=== PATIENT | male | born 1975 | race African-American/Black ===

== ENCOUNTER 2016-09-05 14:23 | Emergency (ER) | payer OTHER ==
[~2016-09-05] VITALS: Ht 167.6 cm; Wt 92.0 kg
[2016-09-05] MEDS ORDERED: MORPHINE SULFATE 4 MG/ML, 1ML IVPush PRN (15:30)
[2016-09-05] MEDS ORDERED: ONDANSETRON 2MG/ML, 2ML IVPush ONE (15:30)
[2016-09-05] MEDS ORDERED: SODIUM CHLORIDE FLUSH 10ML SYR IVF ONE (15:30)
[2016-09-05] MEDS ORDERED: MORPHINE SULFATE 4 MG/ML, 1ML ONE (15:39)
[2016-09-05] MEDS ORDERED: ONDANSETRON 2MG/ML, 2ML ONE (15:39)
[2016-09-05 15:48] LABS: BLOOD UREA NITROGEN 12 mg/dL (7-18)
[2016-09-05 15:52] LABS: ASPARTATE AMINO TRANSFERASE 52 U/L (15-37)
[2016-09-05] MEDS ORDERED: MAALOX/HYOSCYAMINE/LIDOCAINE 45 ML BOTTLE ONE (17:07)
[2016-09-05] MEDS ORDERED: MAALOX/HYOSCYAMINE/LIDOCAINE 45 ML BOTTLE PO ONE (17:30)
[2016-09-05] MEDS ORDERED: OMNIPAQUE 350 MG/ML, 100ML BOTTLE ONE (17:38)
[2016-09-05] MEDS ORDERED: AMLO5TAB2 PO (18:40)
[2016-09-05] MEDS ORDERED: CHLO25TA PO (19:13)
[2016-09-05 20:03] VITALS: BP 115/74
== END 2016-09-05 20:10 | disposition home or self-care (01) ==
LOC: ED 16:39 → EDIP 19:38 → UNDOADMIN 19:38 → ED 20:10
DX: R10.13 Epigastric pain (principal)
CPT/HCPCS: 36415; 74177; 76700; 80053; 81003; 83690; 85025; 96374; 96375; 99285; J2405; Q9967